=== PATIENT | male | born 1995 | race Caucasian/White ===

== ENCOUNTER → 2017-11-20 | Outpatient (CLI) | payer BC | LOC: RAD 16:06 | PROVIDERS: ATTEND Family Medicine | DX: G89.18 Other acute postprocedural pain (principal); M25.551 Pain in right hip; E66.01 Morbid (severe) obesity due to excess calories; M51.26 Other intervertebral disc displacement, lumbar region; M51.27 Other intervertebral disc displacement, lumbosacral region | CPT/HCPCS: 72148 ==

== ENCOUNTER 2018-01-14 08:30 | Day surgery (SDC) | payer BC ==
[~2018-01-14] VITALS: Ht 180.3 cm; Wt 154.6 kg
[2018-01-14] MEDS ORDERED: LACTATED RINGERS 1,000 ML IV SCH (09:21)
[2018-01-14] MEDS ORDERED: OXYC10SY PO (09:24)
[2018-01-14 09:30] VITALS: BP 185/142
[2018-01-14] MEDS ORDERED: LIDOCAINE-MPF 1%, 2ML ONE (09:56)
[2018-01-14] MEDS ORDERED: MIDAZOLAM 1 MG/ML, 2ML ONE (10:23)
[2018-01-14] MEDS ORDERED: FENTANYL PF 250 MCG/5ML ONE ×2 (10:28→12:04)
[2018-01-14] MEDS ORDERED: BUPIVACAINE/PF-EPI 0.5% 1:200K ONE (10:51)
[2018-01-14] MEDS ORDERED: BACITRACIN 50,000 UNIT ONE (10:51)
[2018-01-14] MEDS ORDERED: THROMBIN 5,000 UNIT VIAL TP ONE (10:51)
[2018-01-14] MEDS ORDERED: VANCOMYCIN 1,000 MG ONE (10:51)
[2018-01-14] MEDS ORDERED: ONDANSETRON 2MG/ML, 2ML ONE ×2 (11:07→14:13)
[2018-01-14] MEDS ORDERED: SUCCINYLCHOLINE 20 MG/ML, 10ML ONE (11:07)
[2018-01-14] MEDS ORDERED: ROCURONIUM 10 MG/ML,10ML ONE (11:07)
[2018-01-14] MEDS ORDERED: PROPOFOL 10 MG/ML, 20ML ONE (11:07)
[2018-01-14] MEDS ORDERED: CEFAZOLIN 1,000 MG ONE (11:07)
[2018-01-14] MEDS ORDERED: DEXAMETHASONE 4 MG/ML, 1ML ONE (11:07)
[2018-01-14] MEDS ORDERED: hydrALAzine 20 MG/ML, 1ML IV PRN (12:00)
[2018-01-14] MEDS ORDERED: morphine SULFATE 10 MG/ML, 1ML IV PRN (12:00)
[2018-01-14] MEDS ORDERED: ONDANSETRON 2MG/ML, 2ML IVPush PRN (12:00)
[2018-01-14] MEDS ORDERED: LABETALOL 5MG/ML, 20ML IV PRN (12:00)
[2018-01-14] MEDS ORDERED: OXYcodone 5 MG/5 ML ORAL.SOL UDC PO PRN (12:00)
[2018-01-14] MEDS: FENTANYL PF 100 MCG/2ML IV PRN ×2 (12:50→12:55)
[2018-01-14] MEDS ORDERED: FENTANYL PF 100 MCG/2ML ONE (12:52)
[2018-01-14] MEDS ORDERED: DEXAMETHASONE 4 MG/ML, 5ML ONE (12:58)
[2018-01-14] MEDS ORDERED: DIAZEPAM 5 MG/ML, 2ML IV ONE (13:00)
[2018-01-14] MEDS ORDERED: DEXAMETHASONE 4 MG/ML, 1ML IVPush ONE (13:00)
[2018-01-14] MEDS ORDERED: MEPERIDINE/PF 50 MG/ML ONE (13:01)
[2018-01-14] MEDS ORDERED: OXYcodone 5 MG/5 ML ORAL.SOL UDC ONE (13:01)
[2018-01-14] MEDS ORDERED: HYDROmorphone 1 MG/ML, 1ML ONE (13:33)
[2018-01-14] MEDS: HYDROmorphone 1 MG/ML, 1ML IV PRN ×2 (13:35→13:40)
[2018-01-14] MEDS ORDERED: KETOROLAC 30 MG/1 ML ONE (15:16)
[2018-01-14] MEDS ORDERED: OXYcodone IR 5MG TABLET ONE (15:17)
[2018-01-14] MEDS ORDERED: KETOROLAC 30 MG/1 ML IVPush ONE (15:30)
[2018-01-14] MEDS ORDERED: OXYcodone IR 5MG TABLET PO ONE (15:30)
== END 2018-01-14 16:35 | disposition home or self-care (01) ==
LOC: OUT 08:30
PROVIDERS: ATTEND Neurological Surgery
DX: M51.16 Intervertebral disc disorders with radiculopathy, lumbar region (principal); M48.061 Spinal stenosis, lumbar region without neurogenic claudication; E66.01 Morbid (severe) obesity due to excess calories; Z68.42 Body mass index [BMI] 45.0-49.9, adult; Z88.0 Allergy status to penicillin; Z98.890 Other specified postprocedural states
CPT/HCPCS: 63030; 63056; 72100; J0330; J0690; J1100; J1170; J1885; J2250; J2405; J2704; J3010; J3360; J3370; J7120

== ENCOUNTER → 2019-07-10 | Outpatient (CLI) | payer BC ==
[~2019-07-10] MED LIST: LISI1TAB19 PO; LISI1TAB23 PO; OXYC10SY PO
[2019-07-10 11:41] LABS: BASOPHILS # (AUTO) 0.02 x10^3/uL (0-0.1); BASOPHILS % (AUTO) 0 % (0-1); EOSINOPHILS # (AUTO) 0.03 x10^3/uL (0-0.4); EOSINOPHILS % (AUTO) 1 % (1-7); LYMPHOCYTES # (AUTO) 1.45 x10^3/uL (1-3.4); LYMPHOCYTES % (AUTO) 24 % (22-44); MD NO; MEAN CORPUSCULAR HEMOGLOBIN 30.8 pg (27.5-34.5); MEAN CORPUSCULAR HGB CONC 34.1 g/dL (33.2-36.2); MEAN CORPUSCULAR VOLUME 90.4 fL (81-97); MEAN PLATELET VOLUME 8.1 fL (7.4-10.4); MONOCYTES # (AUTO) 0.48 x10^3/uL (0.2-0.8); MONOCYTES % (AUTO) 8 % (2-9); NEUTROPHILS # (AUTO) 4.11 x10^3/uL (1.8-6.8); NEUTROPHILS % (AUTO) 68 % (42-75); PLATELET COUNT 215 x10^3/uL (130-400); RED BLOOD COUNT 5.61 x10^6/uL (4.38-5.82); RED CELL DISTRIBUTION WIDTH 13.3 % (9.4-14.8)
[2019-07-10 11:55] LABS: ALBUMIN 4.8 g/dL (3.4-5.0); ANION GAP 7 mmol/L (5-15); CALCIUM 9.4 mg/dL (8.5-10.1); CHLORIDE 106 mmol/L (98-107); INTERNATIONAL NORMALIZED RATIO 0.99 (0.93-1.1); PROTHROMBIN TIME 10.4 Seconds (9.6-11.5)
[2019-07-10 11:59] LABS: ALANINE AMINOTRANSFERASE 29 U/L (12-78); ALKALINE PHOSPHATASE 84 U/L (45-117); BILIRUBIN,TOTAL 0.5 mg/dL (0.2-1.0); CREATININE 1.07 mg/dL (0.7-1.3); TOTAL PROTEIN 8.5 g/dL (6.4-8.2)
[2019-07-10 12:02] LABS: MICROSCOPIC NOT IND
[2019-07-10 12:07] LABS: CULTURE INDICATED? NO
== END | disposition home or self-care (01) ==
LOC: STAR 10:28
PROVIDERS: ATTEND Neurological Surgery
DX: M51.36 Other intervertebral disc degeneration, lumbar region (principal); M54.16 Radiculopathy, lumbar region; Z01.812 Encounter for preprocedural laboratory examination
CPT/HCPCS: 36415; 71046; 80053; 81003; 85025; 85610; 85730; 93005

== ENCOUNTER → 2019-07-14 | Outpatient (CLI) | payer BC | END | disposition home or self-care (01) | LOC: RAD 13:27 | PROVIDERS: ATTEND Neurological Surgery | DX: M51.27 Other intervertebral disc displacement, lumbosacral region (principal); F12.10 Cannabis abuse, uncomplicated; Z87.891 Personal history of nicotine dependence | CPT/HCPCS: 72131 ==

== ENCOUNTER 2019-07-16 05:07 | Inpatient (IN) | payer BC ==
[~2019-07-16] VITALS: Ht 180.3 cm; Wt 125.0 kg
[~2019-07-16 05:07] MED LIST changes: -LISI1TAB23 PO
[2019-07-16] MEDS ORDERED: LACTATED RINGERS 1,000 ML IV SCH (06:00)
[2019-07-16] MEDS ORDERED: LIDOCAINE-MPF 1%, 2ML INFIL ONE (06:00)
[2019-07-16 06:09] VITALS: BP 143/78
[2019-07-16] MEDS ORDERED: BUPIVACAINE/PF 0.5% ONE ×2 (06:27→14:06)
[2019-07-16] MEDS ORDERED: THROMBIN 5,000 UNIT VIAL TP ONE (06:27)
[2019-07-16] MEDS ORDERED: EPINEPHRINE 1 MG/ML, 1ML ONE (06:27)
[2019-07-16] MEDS ORDERED: BACITRACIN 50,000 UNIT ONE (06:27)
[2019-07-16] MEDS ORDERED: VANCOMYCIN 1,000 MG ONE (06:27)
[2019-07-16] MEDS ORDERED: HEPARIN 1,000 UNITS/ML, 30ML ONE (06:28)
[2019-07-16] MEDS ORDERED: FLU VACC QS2019-20 36MOS UP/PF 0.5 ML IM-VACC ONE (06:30)
[2019-07-16] MEDS ORDERED: ACETAMINOPHEN 500 MG TABLET PO ONE (06:30)
[2019-07-16] MEDS ORDERED: FAMOTIDINE 20 MG TABLET PO ONE (06:30)
[2019-07-16] MEDS ORDERED: GABAPENTIN 300 MG CAPSULE PO ONE (06:30)
[2019-07-16] MEDS ORDERED: OxyconTIN ER 20 MG TAB.ER PO ONE (06:30)
[2019-07-16] MEDS ORDERED: PROPOFOL 150 ML ONE (06:42)
[2019-07-16] MEDS ORDERED: MIDAZOLAM 1 MG/ML, 2ML ONE (06:42)
[2019-07-16] MEDS ORDERED: FENTANYL PF 250 MCG/5ML ONE ×2 (06:42→10:36)
[2019-07-16] MEDS ORDERED: PROPOFOL 10 MG/ML, 20ML ONE (06:43)
[2019-07-16] MEDS ORDERED: ROCURONIUM 10MG/ML,5ML ONE ×2 (06:43→08:01)
[2019-07-16] MEDS ORDERED: DEXAMETHASONE 4 MG/ML, 1ML ONE ×2 (07:17)
[2019-07-16] MEDS ORDERED: CEFAZOLIN 1,000 MG ONE ×2 (07:18)
[2019-07-16] MEDS ORDERED: HEPARIN 1,000 UNITS/ML, 30ML IVPB ONE (07:55)
[2019-07-16] MEDS ORDERED: ONDANSETRON 2MG/ML, 2ML ONE (09:49)
[2019-07-16] MEDS ORDERED: BUPIVACAINE/PF 0.5% INFIL ONE (10:27)
[2019-07-16] MEDS ORDERED: HYDROmorphone 2 MG/ML, 1ML ONE ×2 (11:04→11:31)
[2019-07-16] MEDS: HYDROmorphone 2 MG/ML, 1ML IVPush PRN ×6 (11:06→11:54)
[2019-07-16] MEDS ORDERED: LORazepam 2 MG/ML, 1ML ONE (11:12)
[2019-07-16] MEDS ORDERED: hydrALAzine 20 MG/ML, 1ML IV PRN (11:30)
[2019-07-16] MEDS ORDERED: PROMETHAZINE 25 MG/ML, 1ML IV PRN ×2 (11:30)
[2019-07-16] MEDS ORDERED: FENTANYL PF 100 MCG/2ML IV PRN ×2 (11:30)
[2019-07-16] MEDS ORDERED: HYDROmorphone 2 MG/ML, 1ML IVPush PRN (11:30)
[2019-07-16] MEDS ORDERED: OXYcodone 5 MG/5 ML ORAL.SOL UDC PO PRN ×2 (11:30)
[2019-07-16] MEDS ORDERED: DIAZEPAM 5 MG/ML, 2ML IVPush PRN (11:30)
[2019-07-16] MEDS ORDERED: MEPERIDINE/PF 25MG/ML,1ML IVPush PRN ×2 (11:30)
[2019-07-16] MEDS ORDERED: LABETALOL 5MG/ML, 20ML IV PRN ×2 (11:30)
[2019-07-16] MEDS ORDERED: ONDANSETRON 2MG/ML, 2ML IV PRN (11:30)
[2019-07-16] MEDS ORDERED: LORazepam 2 MG/ML, 1ML IVPush PRN (11:30)
[2019-07-16] MEDS ORDERED: METHOCARBAMOL 750 MG TABLET ONE (11:31)
[2019-07-16] MEDS ORDERED: METHOCARBAMOL 750 MG TABLET PO PRN (12:00)
[2019-07-16] MEDS ORDERED: LISI1TAB23 PO (13:00)
[2019-07-16] MEDS: HYDROmorphone 2MG TABLET PO PRN ×2 (13:23→18:23)
[2019-07-16] MEDS ORDERED: DIPHENHYDRAMINE 50 MG/ML, 1ML IM PRN (13:30)
[2019-07-16] MEDS ORDERED: BISACODYL 10 MG SUPP PR PRN (13:30)
[2019-07-16] MEDS ORDERED: DIPHENHYDRAMINE 25 MG CAPSULE PO PRN (13:30)
[2019-07-16] MEDS: D5%-0.9% NACL+KCL 20MEQ 1,000 ML IV SCH (13:30)
[2019-07-16] MEDS ORDERED: DIPHENHYDRAMINE 50 MG/ML, 1ML IVPush PRN (13:30)
[2019-07-16] MEDS ORDERED: MAGNESIUM HYDROXIDE 8%, 30ML UDC PO PRN (13:30)
[2019-07-16] MEDS ORDERED: PROMETHAZINE 25 MG/ML, 1ML IM PRN (13:30)
[2019-07-16 13:36] VITALS: BP 149/71
[2019-07-16] MEDS: OXYcodone IR 5MG TABLET PO PRN ×2 (15:11→20:09)
[2019-07-16] MEDS: METHOCARBAMOL 750 MG TABLET PO PRN (18:23)
[2019-07-16 19:39] VITALS: BP 129/53
[2019-07-16] MEDS: CEFAZOLIN PMX 1GM/50ML 50 ML IVPB SCH (20:09)
[2019-07-16] MEDS: HYDROmorphone 2 MG/ML, 1ML IM PRN (23:05)
[2019-07-17] MEDS: D5%-0.9% NACL+KCL 20MEQ 1,000 ML IV SCH ×3 (00:07→23:00)
[2019-07-17] MEDS: HYDROmorphone 2 MG/ML, 1ML IM PRN (00:07)
[2019-07-17 00:11] VITALS: BP 119/54
[2019-07-17] MEDS: OXYcodone IR 5MG TABLET PO PRN ×2 (00:41→05:00)
[2019-07-17] MEDS: METHOCARBAMOL 750 MG TABLET PO PRN ×3 (02:12→17:47)
[2019-07-17 04:10] VITALS: BP 118/68
[2019-07-17] MEDS: HYDROmorphone 2MG TABLET PO PRN ×2 (04:18→08:41)
[2019-07-17] MEDS: CEFAZOLIN PMX 1GM/50ML 50 ML IVPB SCH (04:18)
[2019-07-17 04:34] LABS: BASOPHILS # (AUTO) 0.04 x10^3/uL (0-0.1); BASOPHILS % (AUTO) 0 % (0-1); EOSINOPHILS # (AUTO) 0.04 x10^3/uL (0-0.4); EOSINOPHILS % (AUTO) 0 % (1-7); LYMPHOCYTES # (AUTO) 1.28 x10^3/uL (1-3.4); LYMPHOCYTES % (AUTO) 14 % (22-44); MD NO; MEAN CORPUSCULAR HEMOGLOBIN 31.4 pg (27.5-34.5); MEAN CORPUSCULAR HGB CONC 33.9 g/dL (33.2-36.2); MEAN CORPUSCULAR VOLUME 92.7 fL (81-97); MEAN PLATELET VOLUME 8.3 fL (7.4-10.4); MONOCYTES # (AUTO) 1.11 x10^3/uL (0.2-0.8); MONOCYTES % (AUTO) 13 % (2-9); NEUTROPHILS # (AUTO) 6.42 x10^3/uL (1.8-6.8); NEUTROPHILS % (AUTO) 72 % (42-75); PLATELET COUNT 160 x10^3/uL (130-400); RED BLOOD COUNT 4.25 x10^6/uL (4.38-5.82); RED CELL DISTRIBUTION WIDTH 13.6 % (9.4-14.8)
[2019-07-17 04:43] LABS: ANION GAP 4 mmol/L (5-15); CHLORIDE 108 mmol/L (98-107); CREATININE 0.96 mg/dL (0.7-1.3)
[2019-07-17] MEDS: ENOXAPARIN 40 MG/0.4 ML SQ SCH (06:33)
[2019-07-17] MEDS ORDERED: ARIPIPRAZOLE IM ONE (08:00)
[2019-07-17] MEDS: HYDROCHLOROTHIAZIDE 12.5 MG CAPSULE PO SCH (08:36)
[2019-07-17] MEDS: LISINOPRIL 10 MG TABLET PO SCH (08:36)
[2019-07-17] MEDS: SENNA/DOCUSATE TABLET PO SCH (08:36)
[2019-07-17 09:10] VITALS: BP 118/63
[2019-07-17] MEDS: HYDROmorphone PCA 30 MG/30 ML IV PRN ×2 (10:08→21:56)
[2019-07-17 13:40] VITALS: BP 127/72
[2019-07-17] MEDS: TAMSULOSIN 0.4 MG CAP.ER.24H PO SCH (16:51)
[2019-07-17 19:59] VITALS: BP 102/65
[2019-07-17] MEDS: ONDANSETRON 2MG/ML, 2ML IV PRN (22:30)
[2019-07-18 00:12] VITALS: BP 135/72
[2019-07-18] MEDS: METHOCARBAMOL 750 MG TABLET PO PRN (01:15)
[2019-07-18] MEDS: OXYcodone/APAP 5/325MG TABLET PO PRN (03:43)
[2019-07-18 04:40] LABS: BASOPHILS % (AUTO) 0 % (0-1); EOSINOPHILS # (AUTO) 0.01 x10^3/uL (0-0.4); EOSINOPHILS % (AUTO) 0 % (1-7); LYMPHOCYTES # (AUTO) 0.96 x10^3/uL (1-3.4); LYMPHOCYTES % (AUTO) 10 % (22-44); MD NO; MEAN CORPUSCULAR HEMOGLOBIN 31.7 pg (27.5-34.5); MEAN CORPUSCULAR HGB CONC 34.2 g/dL (33.2-36.2); MEAN CORPUSCULAR VOLUME 92.7 fL (81-97); MEAN PLATELET VOLUME 8.2 fL (7.4-10.4); MONOCYTES # (AUTO) 1.37 x10^3/uL (0.2-0.8); MONOCYTES % (AUTO) 15 % (2-9); NEUTROPHILS # (AUTO) 6.88 x10^3/uL (1.8-6.8); NEUTROPHILS % (AUTO) 75 % (42-75); PLATELET COUNT 151 x10^3/uL (130-400); RED BLOOD COUNT 4.13 x10^6/uL (4.38-5.82); RED CELL DISTRIBUTION WIDTH 13.1 % (9.4-14.8)
[2019-07-18 04:44] LABS: ANION GAP 4 mmol/L (5-15); CALCIUM 8.6 mg/dL (8.5-10.1); CHLORIDE 103 mmol/L (98-107)
[2019-07-18] MEDS: ENOXAPARIN 40 MG/0.4 ML SQ SCH (05:24)
[2019-07-18 07:07] VITALS: BP 121/72
[2019-07-18] MEDS: SENNA/DOCUSATE TABLET PO SCH (08:43)
[2019-07-18] MEDS: HYDROCHLOROTHIAZIDE 12.5 MG CAPSULE PO SCH (08:44)
[2019-07-18] MEDS: LISINOPRIL 10 MG TABLET PO SCH (08:46)
[2019-07-18] MEDS: TAMSULOSIN 0.4 MG CAP.ER.24H PO SCH (08:48)
[2019-07-18] MEDS: D5%-0.9% NACL+KCL 20MEQ 1,000 ML IV SCH ×2 (09:00→18:26)
[2019-07-18] MEDS: KETOROLAC 30 MG/1 ML IVPush SCH ×4 (09:47→23:56)
[2019-07-18] MEDS: METHOCARBAMOL 750 MG in DEXTROSE 5% 100 ML IV PRN ×2 (11:02→23:56)
[2019-07-18] MEDS: OXYcodone IR 5MG TABLET PO PRN ×3 (11:10→23:56)
[2019-07-18 12:30] VITALS: BP 109/66
[2019-07-18 19:02] VITALS: BP 112/45
[2019-07-18] MEDS: HYDROmorphone 2MG TABLET PO PRN (20:05)
[2019-07-18] MEDS: ONDANSETRON 2MG/ML, 2ML IV PRN (20:09)
[2019-07-19 00:44] VITALS: BP_SYST 75; BP_SYST 98; BP_DIAS 39; BP_DIAS 51
[2019-07-19] MEDS: OXYcodone/APAP 5/325MG TABLET PO PRN ×2 (04:19→08:32)
[2019-07-19] MEDS: D5%-0.9% NACL+KCL 20MEQ 1,000 ML IV SCH (05:00)
[2019-07-19 05:17] LABS: ANION GAP 5 mmol/L (5-15); CALCIUM 8.9 mg/dL (8.5-10.1); CHLORIDE 105 mmol/L (98-107)
[2019-07-19 05:18] LABS: CREATININE 1.01 mg/dL (0.7-1.3)
[2019-07-19 05:21] LABS: BASOPHILS # (AUTO) 0.02 x10^3/uL (0-0.1); BASOPHILS % (AUTO) 0 % (0-1); EOSINOPHILS # (AUTO) 0.06 x10^3/uL (0-0.4); EOSINOPHILS % (AUTO) 1 % (1-7); LYMPHOCYTES # (AUTO) 1.11 x10^3/uL (1-3.4); LYMPHOCYTES % (AUTO) 16 % (22-44); MD NO; MEAN CORPUSCULAR HEMOGLOBIN 31.1 pg (27.5-34.5); MEAN CORPUSCULAR HGB CONC 33.8 g/dL (33.2-36.2); MEAN CORPUSCULAR VOLUME 91.8 fL (81-97); MEAN PLATELET VOLUME 8.1 fL (7.4-10.4); MONOCYTES # (AUTO) 0.89 x10^3/uL (0.2-0.8); MONOCYTES % (AUTO) 13 % (2-9); NEUTROPHILS # (AUTO) 4.95 x10^3/uL (1.8-6.8); NEUTROPHILS % (AUTO) 71 % (42-75); PLATELET COUNT 149 x10^3/uL (130-400); RED CELL DISTRIBUTION WIDTH 12.6 % (9.4-14.8)
[2019-07-19] MEDS: OXYcodone IR 5MG TABLET PO PRN ×2 (05:53→11:09)
[2019-07-19] MEDS: ENOXAPARIN 40 MG/0.4 ML SQ SCH (05:53)
[2019-07-19] MEDS: KETOROLAC 30 MG/1 ML IVPush SCH (05:53)
[2019-07-19 07:03] VITALS: BP 134/72
[2019-07-19] MEDS: SENNA/DOCUSATE TABLET PO SCH (08:33)
[2019-07-19] MEDS: HYDROCHLOROTHIAZIDE 12.5 MG CAPSULE PO SCH (08:33)
[2019-07-19] MEDS: LISINOPRIL 10 MG TABLET PO SCH (08:33)
[2019-07-19] MEDS: TAMSULOSIN 0.4 MG CAP.ER.24H PO SCH (08:33)
[2019-07-19] MEDS ORDERED: OXYC-307 PO (13:11)
[2019-07-19] MEDS ORDERED: CIPR500T87 PO (13:11)
[2019-07-19] MEDS ORDERED: METH750T87 PO (13:11)
== END 2019-07-19 14:26 | disposition home or self-care (01) | DRG 455 ==
LOC: ORIP 05:07 → 4NE 12:38 → DCLOUNGE 07-19 14:10
PROVIDERS: ADMIT Neurological Surgery; ATTEND Neurological Surgery
PROC: 0SG30A0 Fusion of Lumbosacral Joint with Interbody Fusion Device, Anterior Approach, Anterior Column, Open Approach (ICD-10-PCS; 2019-07-16)
PROC: 0SB40ZZ Excision of Lumbosacral Disc, Open Approach (ICD-10-PCS; 2019-07-16)
PROC: 01NB0ZZ Release Lumbar Nerve, Open Approach (ICD-10-PCS; 2019-07-16)
PROC: 01NR0ZZ Release Sacral Nerve, Open Approach (ICD-10-PCS; 2019-07-16)
PROC: 0SG3071 Fusion of Lumbosacral Joint with Autologous Tissue Substitute, Posterior Approach, Posterior Column, Open Approach (ICD-10-PCS; principal; 2019-07-16 07:00)
DX: M48.07 Spinal stenosis, lumbosacral region (principal); M51.16 Intervertebral disc disorders with radiculopathy, lumbar region; M47.26 Other spondylosis with radiculopathy, lumbar region; M46.1 Sacroiliitis, not elsewhere classified; M16.11 Unilateral primary osteoarthritis, right hip; F17.210 Nicotine dependence, cigarettes, uncomplicated; E66.01 Morbid (severe) obesity due to excess calories; F32.9 Major depressive disorder, single episode, unspecified; G89.29 Other chronic pain; I10 Essential (primary) hypertension; Z68.38 Body mass index [BMI] 38.0-38.9, adult
CPT/HCPCS: 36415; 72100; 74018; J3490; S0020; 80048; 85025; 86850; 86900; C1713; G0378; J0171; J0690; J1100; J1170; J1644; J1650; J1885; J2250; J2405; J2704; J3010; J3370; C1763; J2060; J2800; J3480; J7120